=== PATIENT | female | born 1960 | race Caucasian/White ===

== ENCOUNTER → 2018-08-19 | Outpatient (CLI) | payer BC ==
[~2018-08-19] MED LIST: ALBU18HF INH; AZIT500T5 PO; CEFD300C37 PO; GLIP10TA13 PO; LISI-167 PO; LISI-170 PO; LOVA20TA2 PO; METF500T17 PO; MULT-257 PO; PRED5TAB PO; SAXA5TAB PO
== END | disposition home or self-care (01) ==
LOC: CFH 08:07
PROVIDERS: ATTEND Nurse Practitioner Family
DX: Z12.31 Encounter for screening mammogram for malignant neoplasm of breast (principal); Z13.820 Encounter for screening for osteoporosis; Z78.0 Asymptomatic menopausal state
CPT/HCPCS: 77080; 77067